=== PATIENT | female | born 1990 | race Caucasian/White ===

== ENCOUNTER 2023-02-26 11:37 | Emergency (ER) | payer MEDICAID, OTHER ==
[~2023-02-26] VITALS: Ht 167.7 cm; Wt 56.7 kg
--- NOTE | 2023-02-26 11:40 | ED General ---
General Stated Complaint: ALCOHOL WITHDRAWAL History of Present Illness Date Seen by Provider: Feb 26, 2023 Time Seen by Provider: 11:40 Initial Comments 32-year-old female presents with some mild jitteriness, nausea. She reports that she feels like she is having some mild alcohol withdrawal. Patient reports that she has been drinking every day for 3 years 10+ shots a day. That she understood that she was having difficulties and need to quit. She has not had a drink since yesterday. Allergies and Home Medications Allergies Uncoded Allergies: pcn (Allergy, Unknown, 02/26/23) Patient Home Medication List Home Medication List Reviewed: Yes Chlordiazepoxide HCl (Chlordiazepoxide HCl) 25 Mg Capsule, 50 MG PO Q4H PRN for ANXIETY Prescribed by: JUDSON FERNANDEZ on 02/26/23 3523 Review of Systems Review of Systems Constitutional: No dizziness, No weakness EENTM: no symptoms reported Respiratory: no symptoms reported Cardiovascular: no symptoms reported Gastrointestinal: nausea Genitourinary: no symptoms reported Musculoskeletal: no symptoms reported Skin: no symptoms reported Psychiatric/Neurological: See HPI Physical Exam Vital Signs Vital Signs - First Documented 02/26/23 02/26/23 11:40 13:22 Temp 36.8 Pulse 89 Resp 18 B/P (MAP) 118/87 (97) Pulse Ox 99 O2 Delivery Room Air Capillary Refill : Height, Weight, BMI Height: '" Weight: lbs. oz. 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 as Tested Skin: Normal Color, Warm/Dry Progress/Results/Core Measures Suspected Sepsis SIRS Temperature: Pulse: Respiratory Rate: Laboratory Tests 02/26/23 11:54: White Blood Count 2.6L Blood Pressure / Mean: Laboratory Tests 02/26/23 11:54: Creatinine 0.61, Platelet Count 201, Total Bilirubin 0.7 Results/Orders Lab Results Laboratory Tests Test 02/26/23 11:54 Range/Units White Blood Count 2.6 L 4.3-11.0 10^3/uL Red Blood Count 4.86 3.80-5.11 10^6/uL Hemoglobin 14.9 11.5-16.0 g/dL Hematocrit 44 35-52 % Mean Corpuscular Volume 90 80-99 fL Mean Corpuscular Hemoglobin 31 25-34 pg Mean Corpuscular Hemoglobin Concent 34 32-36 g/dL Red Cell Distribution Width 16.1 H 10.0-14.5 % Platelet Count 201 130-400 10^3/uL Mean Platelet Volume 10.3 9.0-12.2 fL Immature Granulocyte % (Auto) 0 % Neutrophils (%) (Auto) 33 L 42-75 % Lymphocytes (%) (Auto) 47 H 12-44 % Monocytes (%) (Auto) 17 H 0-12 % Eosinophils (%) (Auto) 0 0-10 % Basophils (%) (Auto) 3 0-10 % Neutrophils # (Auto) 0.9 L 1.8-7.8 10^3/uL Lymphocytes # (Auto) 1.2 1.0-4.0 10^3/uL Monocytes # (Auto) 0.4 0.0-1.0 10^3/uL Eosinophils # (Auto) 0.0 0.0-0.3 10^3/uL Basophils # (Auto) 0.1 0.0-0.1 10^3/uL Immature Granulocyte # (Auto) 0.0 0.0-0.1 10^3/uL Sodium Level 138 135-145 MMOL/L Potassium Level 3.4 L 3.6-5.0 MMOL/L Chloride Level 96 L 98-107 MMOL/L Carbon Dioxide Level 25 21-32 MMOL/L Anion Gap 17 H 5-14 MMOL/L Blood Urea Nitrogen 5 L 7-18 MG/DL Creatinine 0.61 0.60-1.30 MG/DL Estimat Glomerular Filtration Rate 120 BUN/Creatinine Ratio 8 Glucose Level 118 H 70-105 MG/DL Calcium Level 8.8 8.5-10.1 MG/DL Corrected Calcium 8.8 8.5-10.1 MG/DL Total Bilirubin 0.7 0.1-1.0 MG/DL Aspartate Amino Transf (AST/SGOT) 194 H 5-34 U/L Alanine Aminotransferase (ALT/SGPT) 120 H 0-55 U/L Alkaline Phosphatase 106 40-136 U/L Total Protein 6.7 6.4-8.2 GM/DL Albumin 4.0 3.2-4.5 GM/DL Lipase 37 8-78 U/L Serum Alcohol 324 *H <10 MG/DL My Orders Orders - JUDSON FERNANDEZ DO Alcohol (02/26/23 11:45) Cbc With Automated Diff (02/26/23 11:45) Comprehensive Metabolic Panel (02/26/23 11:45) Drug Screen Stat (Urine) (02/26/23 11:45) Lipase (02/26/23 11:45) Ua Culture If Indicated (02/26/23 11:45) Lactated Ringers (Lr 1000 Ml Iv Solution (02/26/23 11:45) Diazepam Tablet (Valium Tablet) (02/26/23 12:00) Medications Given in ED Current Medications Medications Dose Ordered Sig/Daniel Route Start Time Stop Time Status Last Admin Dose Admin Diazepam 5 mg ONCE ONCE PO 02/26/23 12:00 02/26/23 12:01 DC 02/26/23 11:59 5 MG Vital Signs/I&O 02/26/23 02/26/23 11:40 13:22 Temp 36.8 36.7 Pulse 89 73 Resp 18 17 B/P (MAP) 118/87 (97) 123/77 Pulse Ox 99 O2 Delivery Room Air Room Air Capillary Refill : Progress Note : Progress Note Patient's diagnostics as ordered reviewed and interpreted by me. Patient's alcohol is still 324 despite stating that she has not "drank in 10 hours" this time she does not appear to be having any significant withdrawal type symptoms. I will provide her a prescription for Librium. Recommended that if she is wanting to quit drinking and that she pursue further help with possible inpatient therapy. She should contact her primary care provider or behavioral health for help with this. Patient is stable and discharged home Departure Impression Primary Impression: Alcohol abuse Disposition: HOME, SELF-CARE Condition: Stable Departure-Patient Inst. Referrals: NO,LOCAL PHYSICIAN (PCP/Family) Primary Care Physician Patient Instructions: Alcohol Use Disorder (DC) Add. Discharge Instructions: Please follow-up with behavioral health to help facilitate treatment options Scripts Chlordiazepoxide HCl (Chlordiazepoxide HCl) 25 Mg Capsule 50 MG PO Q4H PRN for ANXIETY, #20 CAP . Prov: JUDSON FERNANDEZ DO 02/26/23 JUDSON FERNANDEZ DO Feb 26, 2023 11:40
[2023-02-26] MEDS ORDERED: LACTATED RINGERS 1,000 ML IV STA (11:45)
[2023-02-26 11:58] LABS: BASOPHILS # (AUTO) 0.1 10^3/uL (0.0-0.1); BASOPHILS % (AUTO) 3 % (0-10); EOSINOPHILS % (AUTO) 0 % (0-10); HEMATOCRIT 44 % (35-52); HEMOGLOBIN 14.9 g/dL (11.5-16.0); LYMPHOCYTES # (AUTO) 1.2 10^3/uL (1.0-4.0); LYMPHOCYTES % (AUTO) 47 % (12-44); MEAN CORPUSCULAR HEMOGLOBIN 31 pg (25-34); MEAN CORPUSCULAR HGB CONC 34 g/dL (32-36); MEAN CORPUSCULAR VOLUME 90 fL (80-99); MEAN PLATELET VOLUME 10.3 fL (9.0-12.2); MONOCYTES # (AUTO) 0.4 10^3/uL (0.0-1.0); MONOCYTES % (AUTO) 17 % (0-12); NEUTROPHILS # (AUTO) 0.9 10^3/uL (1.8-7.8); NEUTROPHILS % (AUTO) 33 % (42-75); PLATELET COUNT 201 10^3/uL (130-400); WHITE BLOOD COUNT 2.6 10^3/uL (4.3-11.0)
[2023-02-26 12:16] LABS: BILIRUBIN,TOTAL 0.7 MG/DL (0.1-1.0); CALCIUM 8.8 MG/DL (8.5-10.1); CREATININE SERUM 0.61 MG/DL (0.60-1.30); POTASSIUM 3.4 MMOL/L (3.6-5.0); TOTAL PROTEIN 6.7 GM/DL (6.4-8.2)
[2023-02-26] MEDS ORDERED: CHLO25CA10 PO ×2 (13:19→14:20)
[2023-02-26 13:22] VITALS: BP 123/77
== END 2023-02-26 13:23 | disposition home or self-care (01) ==
LOC: ER FS 11:40
DX: F10.10 Alcohol abuse, uncomplicated (principal); Y90.8 Blood alcohol level of 240 mg/100 ml or more; Z28.310 Unvaccinated for COVID-19
CPT/HCPCS: 80053; 80320; 83690